=== PATIENT | female | born 1970 | race Caucasian/White ===

== ENCOUNTER 2018-10-28 05:57 | Inpatient (IN) | payer BC ==
[2018-10-28] MEDS ORDERED: LACTATED RINGER'S 1,000 ML (ENTER RATE) IV (07:00)
[2018-10-28] MEDS ORDERED: FENTAnyl 50 MCG/ML VIAL ×2 (07:37→09:37)
[2018-10-28] MEDS ORDERED: CEFAZOLIN 1 GM INJ (07:37)
[2018-10-28] MEDS ORDERED: SUCCINYLCHOLINE CHLORIDE 100 MG/5 ML SYG IV (07:37)
[2018-10-28] MEDS ORDERED: ROCURONIUM 50 MG INJ (07:37)
[2018-10-28] MEDS ORDERED: LIDOCAINE 100 MG SYRINGE (07:37)
[2018-10-28] MEDS ORDERED: DEXAMETHASONE 4 MG/ML 5 ML INJ (08:13)
[2018-10-28] MEDS: CEFAZOLIN 2 GM/50 ML (PMX) 50 ML IVPB (08:16)
[2018-10-28] MEDS ORDERED: LABETALOL HCL 20MG INJ (08:37)
[2018-10-28] MEDS: BUPIVACAINE 0.25%/EPI (SDV) 30 ML INJ (08:38)
[2018-10-28] MEDS: SURGIFOAM POWDER 1 GM KIT MM (09:13)
[2018-10-28] MEDS: GELATIN SIZE 100 SPONGE (09:13)
[2018-10-28] MEDS: THROMBIN 5000 UNIT VIAL (09:13)
[2018-10-28] MEDS: POLYMYXIN/BACITRACIN 1L IRRIG (09:14)
[2018-10-28] MEDS ORDERED: MIDAZOLAM 1 MG/ML 2 ML INJ (09:37)
[2018-10-28] MEDS ORDERED: SUGAMMADEX SODIUM 200 MG/2 ML VIAL IV (11:26)
[2018-10-28] MEDS ORDERED: MEPERIDINE 25 MG INJ IV (12:00)
[2018-10-28] MEDS ORDERED: PROCHLORPERAZINE 10 MG TAB PO (12:00)
[2018-10-28] MEDS ORDERED: OXYCODONE/ACETAMINOPHEN (5/325) TAB PO (12:00)
[2018-10-28] MEDS ORDERED: HYDROCODONE/APAP (5/325) TAB PO (12:00)
[2018-10-28] MEDS ORDERED: NACL 0.9% 3 ML SYG IV (12:00)
[2018-10-28] MEDS ORDERED: ALBUTEROL 0.083% (NEB) 2.5 MG/3 ML AMP HHN (12:00)
[2018-10-28] MEDS ORDERED: CEFAZOLIN 1 GM/50 ML (PMX) 50 ML IVPB (12:00)
[2018-10-28] MEDS ORDERED: DIPHENHYDRAMINE 50 MG INJ IV (12:00)
[2018-10-28] MEDS ORDERED: HYDROmorphONE 1 MG/5 ML IV SYRINGE IV ×3 (12:00)
[2018-10-28] MEDS ORDERED: AL HYDROX/MG HYDROX/SIMETH 30 ML CUP PO (12:00)
[2018-10-28] MEDS ORDERED: FENTAnyl 50 MCG/ML VIAL IV ×2 (12:00)
[2018-10-28] MEDS ORDERED: ACETAMINOPHEN 325 MG TAB PO (12:00)
[2018-10-28] MEDS ORDERED: NALOXONE (0.4 MG/ML) INJ IV (12:00)
[2018-10-28] MEDS ORDERED: METOCLOPRAMIDE 10 MG INJ IV (12:00)
[2018-10-28] MEDS: HYDROmorphONE 0.2 MG/ML PCA IV (12:12)
[2018-10-28] MEDS: FENTAnyl 50 MCG/ML VIAL IV ×2 (12:24→12:29)
[2018-10-28] MEDS: ONDANSETRON 4 MG INJ IV ×2 (12:58→20:34)
[2018-10-28] MEDS: CEFAZOLIN 1 GM/50 ML (PMX) 50 ML IVPB ×2 (15:23→20:34)
[2018-10-28] MEDS: ACETAMINOPHEN 1000MG/100ML IV 100 ML IVPB ×2 (16:24→23:38)
[2018-10-28] MEDS: SOD CHLORIDE 0.9% 1,000 ML IV (19:27)
[2018-10-28] MEDS: ATORVASTATIN 40 MG TAB PO (20:27)
[2018-10-28] MEDS: FENOFIBRATE 145 MG TAB PO (20:27)
[2018-10-29] MEDS: SOD CHLORIDE 0.9% 1,000 ML IV ×2 (02:00→10:03)
[2018-10-29] MEDS: CEFAZOLIN 1 GM/50 ML (PMX) 50 ML IVPB ×2 (02:19→08:20)
[2018-10-29] MEDS: PANTOPRAZOLE (EC) 40 MG TAB PO (05:00)
[2018-10-29 05:12] LABS: HEMATOCRIT 40.4 % (37.0-47.0); HEMOGLOBIN 13.2 g/dl (12.0-16.0)
[2018-10-29 05:36] LABS: ANION GAP 6 (5-13); BLOOD UREA NITROGEN 14 mg/dl (7-20); CALCIUM 9.2 mg/dl (8.4-10.2); CARBON DIOXIDE 30 mmol/L (21-31); CHLORIDE 105 mmol/L (97-110); CREATININE 0.61 mg/dl (0.44-1.00); Estimated GFR > 60 mL/min (>60); GLUCOSE 134 mg/dl (70-220); POTASSIUM 4.6 mmol/L (3.5-5.1); SODIUM 141 mmol/L (135-144)
[2018-10-29] MEDS: ACETAMINOPHEN 1000MG/100ML IV 100 ML IVPB (06:17)
[2018-10-29] MEDS: DOCUSATE SODIUM 100 MG CAP PO (08:20)
[2018-10-29] MEDS: LIDOCAINE 5% PATCH TD (08:23)
[2018-10-29] MEDS ORDERED: DEXAMETHASONE 10 MG/ML 1 ML INJ IM (13:30)
[2018-10-29] MEDS: DEXAMETHASONE 10 MG/ML 1 ML INJ IV (13:59)
[2018-10-29] MEDS: HYDROCODONE/APAP (5/325) TAB PO (14:22)
== END 2018-10-29 16:15 | disposition home or self-care (01) | DRG 472 ==
LOC: REC 05:57 → MS1 13:50
PROC: 0RG20A0 Fusion of 2 or more Cervical Vertebral Joints with Interbody Fusion Device, Anterior Approach, Anterior Column, Open Approach (ICD-10-PCS; principal; 2018-10-28 07:30)
PROC: 0RG20K0 Fusion of 2 or more Cervical Vertebral Joints with Nonautologous Tissue Substitute, Anterior Approach, Anterior Column, Open Approach (ICD-10-PCS; 2018-10-28 07:30)
PROC: 0RT30ZZ Resection of Cervical Vertebral Disc, Open Approach (ICD-10-PCS; 2018-10-28 07:30)
DX: M50.122 Cervical disc disorder at C5-C6 level with radiculopathy (principal); Z68.41 Body mass index [BMI] 40.0-44.9, adult; E66.01 Morbid (severe) obesity due to excess calories; E78.5 Hyperlipidemia, unspecified
CPT/HCPCS: 72040; 72050; 80048; 84703; 85014; 85018; 97116; 97161; 97530